=== PATIENT | male | born 1965 | race Caucasian/White ===

== ENCOUNTER 2019-05-17 03:41 | Emergency (ER) | payer MEDICAID ==
[~2019-05-17] VITALS: Ht 185.4 cm; Wt 95.0 kg
[2019-05-17] MEDS ORDERED: KETOROLAC 30MG/ML VIAL IM ONE (06:45)
[2019-05-17] MEDS ORDERED: DEXAMETHASONE 10 MG/ML VIAL IM ONE (06:45)
[2019-05-17] MEDS ORDERED: CARISOPRODOL 350 MG TABLET PO ONE (06:45)
[2019-05-17] MEDS ORDERED: OXYCODONE HCL/ACETAMINOPHEN 5/325MG TABLET PO ONE (09:45)
[2019-05-17 11:05] VITALS: BP 174/94
== END 2019-05-17 11:21 | disposition home or self-care (01) ==
LOC: ER 03:41
DX: M54.5 Low back pain (principal); G89.29 Other chronic pain; F31.9 Bipolar disorder, unspecified; F17.210 Nicotine dependence, cigarettes, uncomplicated; Z98.1 Arthrodesis status
CPT/HCPCS: 96372; 99283; J1100; J1885; Z7610